=== PATIENT | male | born 1965 ===

== ENCOUNTER 2022-03-17 22:22 | Observation (INO) ==
[2022-03-17] MEDS ORDERED: ONDANSETRON 4 MG/2 ML VIAL IV STA (22:51)
[2022-03-17] MEDS ORDERED: hydrALAZINE 20 MG/1 ML VIAL IV STA (22:51)
[2022-03-17] MEDS ORDERED: FUROSEMIDE 100 MG/10 ML VIAL IV STA (22:51)
[2022-03-17 22:55] LABS: Basophils % 0.5 % (0.0-0.8); Eosinophils # 0.3 10*3/uL (0.0-0.87); Eosinophils % 3.3 % (0.00-10.9); Hematocrit 41.1 VOL% (42.0-52.0); Hemoglobin 13.6 GM/DL (14.0-18.0); Immature Granulocytes % 0.3 %; Immature Granulocytes Absolute 0.02 #; Lymphocytes # 1.3 10*3/uL (1.4-4.0); Lymphocytes % 17.3 % (21.2-54.2); Mean Corpuscular HGB Conc 33.1 GM/DL (32-36); Mean Corpuscular Volume 85.3 FL (87-102); Mean Platelet Volume 9.7 FL (9.6-12.0); Monocytes # 0.5 10*3/uL (0.11-0.8); Monocytes % 6.3 % (1.7-12.7); Neutrophils % 72.3 % (38.7-73.9); Platelet Count 223 T/CUMM (130-400); Red Blood Count 4.82 MC/CUMM (3.8-5.5); White Blood Count 7.6 T/CUMM (4-12)
[2022-03-17 23:05] LABS: INR 1.1; PT Patient Result 11.8 SECS (10.5-12.0); Partial Thromboplastin Time 34.3 SECS (23.7-32.9)
[2022-03-17 23:27] LABS: Albumin 2.9 G/DL (3.4-5.0); Calcium 9.1 MG/DL (8.5-10.1); Osmolality,Calculated 293.8 MOS/KG (273-304); Potassium 3.4 MMOL/L (3.5-5.1); Total Protein 7.5 G/DL (6.4-8.2)
[2022-03-18] MEDS ORDERED: GLUCAGON 1 MG VIAL IM PRN ×2 (00:30)
[2022-03-18] MEDS ORDERED: DEXTROSE 10% 250 ML BAG IV PRN (00:30)
[2022-03-18] MEDS ORDERED: hydrALAZINE 20 MG/1 ML VIAL IV PRN (00:30)
[2022-03-18] MEDS ORDERED: ACETAMINOPHEN 325 MG TABLET PO PRN (00:30)
[2022-03-18] MEDS ORDERED: ZALEPLON 5 MG CAPSULE PO PRN (00:30)
[2022-03-18] MEDS ORDERED: DEXTROSE 50% 25 GM/50 ML VIAL IV PRN (00:30)
[2022-03-18] MEDS ORDERED: NICOTINE 21 MG/24 HR PATCH TRANSDERM PRN (00:30)
[2022-03-18] MEDS ORDERED: diphenhydrAMINE CAP 25 MG CAPSULE PO PRN (00:30)
[2022-03-18] MEDS ORDERED: guaiFENesin/DM ER 600-30 MG TABLET PO PRN (00:30)
[2022-03-18] MEDS ORDERED: MORPHINE 2 MG/1 ML SYRINGE IV PRN (00:30)
[2022-03-18] MEDS ORDERED: amLODIPine 10 MG TABLET PO ONE (00:33)
[2022-03-18] MEDS ORDERED: hydrALAZINE 20 MG/1 ML VIAL IV STA (00:34)
[2022-03-18 04:09] LABS: Basophils # 0.1 10*3/uL (0.0-0.2); Basophils % 0.6 % (0.0-0.8); Eosinophils # 0.1 10*3/uL (0.0-0.87); Eosinophils % 1.5 % (0.00-10.9); Hematocrit 39.7 VOL% (42.0-52.0); Immature Granulocytes % 0.5 %; Immature Granulocytes Absolute 0.05 #; Lymphocytes # 0.7 10*3/uL (1.4-4.0); Lymphocytes % 7.8 % (21.2-54.2); Mean Corpuscular HGB Conc 32.7 GM/DL (32-36); Mean Corpuscular Volume 86.7 FL (87-102); Mean Platelet Volume 10.1 FL (9.6-12.0); Monocytes # 0.6 10*3/uL (0.11-0.8); Neutrophils % 83.6 % (38.7-73.9); Platelet Count 234 T/CUMM (130-400); Red Blood Count 4.58 MC/CUMM (3.8-5.5); Red Cell Distribution Width 14.9 % (9.3-17.3); White Blood Count 9.3 T/CUMM (4-12)
[2022-03-18 04:29] LABS: Calcium 8.7 MG/DL (8.5-10.1); Osmolality,Calculated 294.8 MOS/KG (273-304); Potassium 3.5 MMOL/L (3.5-5.1)
[2022-03-18 06:14] VITALS: BP 173/82
[2022-03-18] MEDS ORDERED: FUROSEMIDE 40 MG/4 ML VIAL IV SCH (08:00)
[2022-03-18] MEDS ORDERED: SPIRONOLACTONE 25 MG TABLET PO SCH (09:00)
[2022-03-18] MEDS ORDERED: lisinopriL 20 MG TABLET PO SCH (09:00)
[2022-03-18] MEDS ORDERED: amLODIPine 10 MG TABLET PO SCH (09:00)
[2022-03-18] MEDS ORDERED: HEPARIN 5,000 UNIT/1 ML VIAL SUBCUT SCH (09:00)
[2022-03-18] MEDS ORDERED: BISACODYL 5 MG TABLET PO SCH (09:00)
[2022-03-18] MEDS ORDERED: ASPIRIN EC 81 MG TABLET PO SCH (09:00)
== END 2022-03-18 12:35 | disposition home or self-care (01) ==
LOC: EDBD → EDUNIT# → N.ED 22:22 → N.EDINP 22:22
PROVIDERS: ADMIT Internal Medicine Geriatric Medicine; ATTEND Internal Medicine Geriatric Medicine